=== PATIENT | female | born 1975 | race Caucasian/White ===

== ENCOUNTER 2017-11-15 10:51 | Emergency (ER) | payer OTHER ==
[2017-11-15 11:11] VITALS: BP 146/68; PULSE 97; RESP 16; TEMP 98.1; O2SAT 98
[2017-11-15 11:43] LABS: AUTOMATED NEUTROPHIL # 4.3 TH/MM3 (1.8-7.7); BASOPHIL % 0.5 % (0.0-2.0); EOSINOPHIL % 0.5 % (0.0-4.0); HEMATOCRIT 38.9 % (35.0-46.0); HEMOGLOBIN 12.8 GM/DL (11.6-15.3); LYMPH % 21.2 % (9.0-44.0); LYMPHOCYTE # 1.2 TH/MM3 (1.0-4.8); MEAN CELL VOLUME 81.6 FL (80.0-100.0); MEAN CORPUSCULAR HEMOGLOBIN 26.9 PG (27.0-34.0); MEAN PLATELET VOLUME 8.6 FL (7.0-11.0); MONO % 3.5 % (0.0-8.0); MONOCYTE # 0.2 TH/MM3 (0-0.9); NEUT % 74.3 % (16.0-70.0); PLATELET COUNT 253 TH/MM3 (150-450); RED BLOOD COUNT 4.77 MIL/MM3 (4.00-5.30); RED CELL DISTRIBUTION WIDTH 14.5 % (11.6-17.2); WHITE BLOOD COUNT 5.8 TH/MM3 (4.0-11.0)
[2017-11-15 11:45] LABS: BACTERIA, URINE FEW /hpf; BILIRUBIN, URINE NEG (NEG); BLOOD, URINE LARGE (NEG); GLUCOSE,URINE NEG (NEG); KETONE, URINE NEG (NEG); NITRITE,URINE NEG (NEG); SQUAMOUS EPITHELIAL CELL URINE 2 /hpf (0-5); URINE COLOR LIGHT-YELLOW (YELLW/STRAW); URINE LEUKOCYTE ESTERASE NEG (NEG)
[2017-11-15 12:07] LABS: CALCIUM 8.7 MG/DL (8.5-10.1); CREATININE 0.67 MG/DL (0.50-1.00)
--- NOTE | 2017-11-15 12:44 | PD ---
HPI Chief Complaint: General Weakness Time Seen by Provider: 12:07 Travel History International Travel<30 days: No Contact w/Intl Traveler<30days: No Traveled to known affect area: No History of Present Illness HPI Patient presents to the emergency department with a 3 day history of dizziness. She states that she feels "groggy and out of it." While sitting down at work today patient states that she felt like she was going to pass out (but didn't) and has been feeling tired. She denies ever having these symptoms before. Also reporting right tinnitus intermittent x 2-3 months, being thirsty, and polyuria. She denies vertigo, headache, chest pain, shortness of breath, fever or chills, abdominal pain, nausea vomiting, cough, or unsteady gait. Stated that her legs felt a little numb for a second then felt tight and then resolved earlier today x 1 episode. Reports difficulty sleeping for the past few months and stress at work and slight stress with her returning to work after being unemployed for a year. Patient is also on a vegetarian diet and is concerned that she may not be getting all the necessary vitamins and minerals. Lastly, her period, which is usually normally, came earlier this time. Approx 2 weeks in between current period and the one prior. Had blood sugar checked a few days/weeks ago at work at an event and was told that her sugar was 102 and should have been <100 and her BMI was slightly higher than normal. PFSH Past Medical History Migraines: Yes Influenza Vaccination: Yes ?: Not LMP: Now : 0 Past Surgical History Gynecologic Surgery: Yes (tubal surgery) Tympanostomy Tube: Yes (tubes and L ear drum replaced) Family History Narrative Family History Diabetes, hypertension, fibromyalgia, CVA Social History Alcohol Use: Yes (occas) Tobacco Use: No Substance Use: No Allergies-Medications (Allergen,Severity, Reaction): Coded Allergies: No Known Allergies (Unverified , 11/15/17) Reported Meds & Prescriptions Reported Meds & Active Scripts Active No Active Prescriptions or Reported Medications Review of Systems Except as stated in HPI: all other systems reviewed are Neg Physical Exam Narrative GENERAL: No acute distress. SKIN: Focused skin assessment warm/dry. HEAD: Atraumatic. Normocephalic. EYES: Pupils equal and round. No scleral icterus. No injection or drainage. Extraocular muscles are intact bilaterally. ENT: No nasal bleeding or discharge. Mucous membranes pink and moist. Normal TM. NECK: Trachea midline. No JVD. Supple, full range of motion. CARDIOVASCULAR: Regular rate and rhythm. No murmur appreciated. RESPIRATORY: No accessory muscle use. Clear to auscultation. Breath sounds equal bilaterally. GASTROINTESTINAL: Abdomen soft, non-tender, nondistended. MUSCULOSKELETAL: No obvious deformities. No clubbing. No cyanosis. No edema. NEUROLOGICAL: Awake and alert. Cranial nerves II through XII intact. Motor grossly within normal limits. Normal speech. Romberg negative. Normal gait. Normal finger to nose and heel to augustine. PSYCHIATRIC: Appropriate mood and affect; insight and judgment normal. Data Data Last Documented VS Vital Signs Date Time Temp Pulse Resp B/P (MAP) Pulse Ox O2 Delivery O2 Flow Rate FiO2 11/15/17 13:05 83 119/70 (86) 84 127/81 (96) 84 138/86 (103) 11/15/17 11:11 98.1 16 98 Orders Orders Complete Blood Count With Diff (11/15/17 11:13) Basic Metabolic Panel (Bmp) (11/15/17 11:13) Electrocardiogram (11/15/17 ) Urinalysis - C+S If Indicated (11/15/17 11:13) Ed Urine Pregnancytest Poc (11/15/17 11:13) Thyroid Stimulating Hormone (11/15/17 12:27) Magnesium (Mg) (11/15/17 12:27) Chest, Pa & Lat (11/15/17 ) Orthostatic Blood Pressure (11/15/17 12:27) Ct Brain W/O Iv Contrast(Rout) (11/15/17 ) Troponin I (11/15/17 12:27) Ed Discharge Order (11/15/17 14:32) Labs Laboratory Tests Test 11/15/17 11:30 White Blood Count 5.8 TH/MM3 Red Blood Count 4.77 MIL/MM3 Hemoglobin 12.8 GM/DL Hematocrit 38.9 % Mean Corpuscular Volume 81.6 FL Mean Corpuscular Hemoglobin 26.9 PG Mean Corpuscular Hemoglobin Concent 33.0 % Red Cell Distribution Width 14.5 % Platelet Count 253 TH/MM3 Mean Platelet Volume 8.6 FL Neutrophils (%) (Auto) 74.3 % Lymphocytes (%) (Auto) 21.2 % Monocytes (%) (Auto) 3.5 % Eosinophils (%) (Auto) 0.5 % Basophils (%) (Auto) 0.5 % Neutrophils # (Auto) 4.3 TH/MM3 Lymphocytes # (Auto) 1.2 TH/MM3 Monocytes # (Auto) 0.2 TH/MM3 Eosinophils # (Auto) 0.0 TH/MM3 Basophils # (Auto) 0.0 TH/MM3 CBC Comment DIFF FINAL Differential Comment Urine Color LIGHT-YELLOW Urine Turbidity CLEAR Urine pH 8.0 Urine Specific [place] 1.003 Urine Protein NEG mg/dL Urine Glucose (UA) NEG mg/dL Urine Ketones NEG mg/dL Urine Occult Blood LARGE Urine Nitrite NEG Urine Bilirubin NEG Urine Urobilinogen LESS THAN 2.0 MG/DL Urine Leukocyte Esterase NEG Urine RBC 8 /hpf Urine WBC 1 /hpf Urine Squamous Epithelial Cells 2 /hpf Urine Bacteria FEW /hpf Microscopic Urinalysis Comment CULT NOT INDICATED Blood Urea Nitrogen 12 MG/DL Creatinine 0.67 MG/DL Random Glucose 120 MG/DL Calcium Level 8.7 MG/DL Sodium Level 142 MEQ/L Potassium Level 3.8 MEQ/L Chloride Level 107 MEQ/L Carbon Dioxide Level 27.0 MEQ/L Anion Gap 8 MEQ/L Estimat Glomerular Filtration Rate 96 ML/MIN Magnesium Level 2.3 MG/DL Troponin I LESS THAN 0.02 NG/ML Thyroid Stimulating Hormone 3rd Gen 1.650 uIU/ML [facility] Medical Decision Making Medical Screen Exam Complete: Yes Emergency Medical Condition: Yes Interpretation(s) Head CT: FINDINGS: CEREBRUM: The ventricles are normal for age. No evidence of midline shift, mass lesion, hemorrhage or acute infarction. No extra-axial fluid collections are seen. POSTERIOR FOSSA: The cerebellum and brainstem are intact. The 4th ventricle is midline. The cerebellopontine angle is unremarkable. EXTRACRANIAL: The visualized portion of the orbits is intact. SKULL: The calvaria is intact. No evidence of skull fracture. CONCLUSION: No acute disease. ECG: Sinus rhythm, rate approx 80, normal intervals, nonspecific T wave changes. Last Impressions Chest X-Ray 11/15/17 0000 Signed Impressions: Service Date/Time: Wednesday, November 15, 2017 12:46 - CONCLUSION: No acute disease. Brett Paz MD Differential Diagnosis Differential includes anemia, hypothyroid, dehydration (orthostasis), UTI, hormonal imbalance. Less likely and further down on the differential is intracranial or cardiac abnormality. Narrative Course Patient presented to ER c/o variety of symptoms: Difficulty sleeping, feeling lightheaded, tired, shorter time between menstrual cycles, stress at work/home. Workup was essentially negative. Patient wasnot orthostatic, anemic, normal TSH and chemistry, head CT/CXR/troponin were normal. Offered to admit patient for overnight obs, but she prefered to go home and sleep. She has no PCP or Securities Attorney; therefore, gave her referrals to [facility], Dr. Velasquez (PCP) and Dr. Gaines (Securities Attorney). Additionally,as she reports having [employer] insurance, advised her to call them to locate such providers in her area. Will d/c with return instructions. Also stressed to patient that she needed to followup with PCP to check her blood sugar. Procedures EKG Prior to Arrival: No Diagnosis Primary Impression: Weakness generalized Referrals: Irene Velasquez MD 3 days Primary care physician Lurdes Gaines MD 3 days IMAGE PROCESSING ENGINE[employer] [facility] 1 day Patient Instructions: General Instructions Departure Forms: Tests/Procedures, Work Release Enter return to work date: Nov 18, 2017 Special Instructions: Followup with referral providers. Additional Instructions: Return to ER for fever, vomiting, chest pain, shortness of breath, passing out, or for any new/worrisome/worsening symptoms. Followup with [facility] and with [employer] to locate provider in your area. Scripts No Active Prescriptions or Reported Meds Disposition: 01 DISCHARGE HOME Condition: Stable Jannette Tran MD Nov 15, 2017 12:44
--- NOTE | 2017-11-15 12:57 | RADRPT ---
EXAM DATE/TIME: 11/15/2017 12:46 [facility] COMPARISON: No previous studies available for comparison. INDICATIONS : Syncope. MEDICAL HISTORY : None. SURGICAL HISTORY : None. ENCOUNTER: Initial ACUITY: 3 days PAIN SCORE: 0/10 LOCATION: Bilateral chest FINDINGS: PA and lateral views of the chest demonstrate the lungs to be symmetrically aerated without evidence of mass, infiltrate or effusion. The cardiomediastinal contours are unremarkable. Osseous structure s are intact. CONCLUSION: No acute disease. Brett Paz MD on November 15, 2017 at 12:55 Board Certified Radiologist. This report was verified electronically.
[2017-11-15 13:04] VITALS: BP 119/70
[2017-11-15 13:04] LABS: MAGNESIUM 2.3 MG/DL (1.5-2.5)
[2017-11-15 13:05] VITALS: BP_SYST 119; BP_SYST 127; BP_SYST 138; BP_DIAS 70; BP_DIAS 81; BP_DIAS 86
[2017-11-15 13:13] LABS: TROPONIN I LESS THAN 0.02 NG/ML (0.02-0.05)
--- NOTE | 2017-11-15 13:53 | RADRPT ---
EXAM DATE/TIME: 11/15/2017 13:43 [facility] COMPARISON: No previous studies available for comparison. INDICATIONS : Dizziness. RADIATION DOSE: 56.35 CTDIvol (mGy) MEDICAL HISTORY : None SURGICAL HISTORY : None. ENCOUNTER: Initial ACUITY: 3 days PAIN SCALE: 0/10 LOCATION: cranial TECHNIQUE: Multiple contiguous axial images were obtained of the head. Using automated exposure control and adj ustment of the mA and/or kV according to patient size, radiation dose was kept as low as reasonably a chievable to obtain optimal diagnostic quality images. DICOM format image data is available electro nically for review and comparison. FINDINGS: CEREBRUM: The ventricles are normal for age. No evidence of midline shift, mass lesion, hemorrhage or acute in farction. No extra-axial fluid collections are seen. POSTERIOR FOSSA: The cerebellum and brainstem are intact. The 4th ventricle is midline. The cerebellopontine angle i s unremarkable. EXTRACRANIAL: The visualized portion of the orbits is intact. SKULL: The calvaria is intact. No evidence of skull fracture. CONCLUSION: No acute disease. Merrill Urias MD on November 15, 2017 at 13:49 Board Certified Radiologist. This report was verified electronically.
--- NOTE | 2017-11-16 21:42 | EKG ---
Date Performed: 11/15/2017 Time Performed: 11:23:29 PTAGE: 42 years EKG: Sinus rhythm NONSPECIFIC T-WAVE ABNORMALITY BORDERLINE ECG NO PREVIOUS TRACING DOCTOR: Arsen Mason Interpretating Date/Time 11/16/2017 21:39:00
== END 2017-11-15 14:49 | disposition home or self-care (01) ==
LOC: NEPD 10:51
DX: R53.1 Weakness (principal); R42 Dizziness and giddiness; R94.31 Abnormal electrocardiogram [ECG] [EKG]
CPT/HCPCS: 70450; 71046; 80048; 81001; 83735; 84443; 84484; 84703; 85025; 93005; 99285